=== PATIENT | female | born 1995 | race Caucasian/White ===

== ENCOUNTER 2016-04-20 17:48 | Emergency (ER) | payer BC ==
[~2016-04-20] VITALS: Ht 162.6 cm; Wt 61.5 kg
[2016-04-20 17:55] VITALS: BP 106/72; TEMP 36.8; Ht 162.6 cm; Wt 61.5 kg
[2016-04-20 18:32] VITALS: PULSE 74; O2SAT 98
--- NOTE | 2016-04-20 18:48 | EMERGENCY ROOM VISIT NOTE ---
ED Visit Note First contact with patient: 17:56 Chief Complaint: Sore throat. History of Present Illness: Ms. Beltran is a 20-year-old white female who ambulates into the ED accompanied by a male friend complaining of throat pain. Patient reports her discomfort started earlier today and is currently only with swallowing. She describes her pain as an achy sensation. She rates her discomfort 4/10. Her pain is nonradiating. As mentioned earlier her pain is only with swallowing and without swallowing she is pain-free. She has not taken any medications for her pain prior to arrival at the hospital. Associated with her pain she does report she looked in her throat in the mirror and noted white spots on her right tonsil plan she has had a mild nonproductive cough. She denies fevers, chills, sweats, skin eruptions, skin color changes, headache, dizziness, lightheadedness, nasal drainage, voice changes, painful talking, drooling, neck pain/stiffness, shortness of breath, wheezing, abdominal pain, nausea/vomiting, decreased appetite. Review of Systems: As noted above in history of present illness. 8 body systems were reviewed and found to be negative as noted above. Past Medical History: Unspecified nose and foot surgeries. Current Medications: Patient denies. Allergies to Medications: Patient denies. Social History: Patient is [employer] student; she feels safe in her home environment; she denies tobacco and alcohol use. Physical Examination: Vital Signs: Date Time Temp Pulse Resp B/P Pulse Ox O2 Delivery O2 Flow Rate FiO2 04/20/16 18:32 74 18 98 Room Air 04/20/16 17:55 36.8 85 16 106/72 98 Room Air GENERAL: 20-year-old female in no acute distress, nontoxic-appearing, afebrile and hemodynamically stable. NEUROLOGICAL: Awake, alert and oriented to person, place and time. Answering questions appropriately and following commands. Normal gait. Good hand eye coordination. No focal motor sensory deficits. SKIN: Warm, dry and pink. No soft tissue eruptions noted. HEENT: Atraumatic and normocephalic. Sclera white and conjunctiva pink without drainage. No drainage from naris without drainage. Oral cavity moist and pink. No intraoral trauma. Uvula is midline and no abscesses are seen. Pharynx is mildly erythematous but not edematous. Mild tonsillar hypertrophy. White exudative material was noted on the top of the right tonsil. Speech normal. No lymphadenopathy. Trachea midline. No jugular venous distention. No laryngeal tenderness. BACK: No tenderness over the bony spine. Full range of motion of the cervical spine. THORAX: Lungs sounds are clear to auscultation and equal bilaterally with symmetrical chest wall. No wheezing, rales or rhonchi. ED Course: Patient is assessed as noted above. Rapid Strep Screen: Negative. Culture pending. Patient was educated about tonight's findings and instructed on her treatment plan; she verbalized understanding and agreement with this plan. Clinical Impression: Acute pharyngitis. Disposition: Patient discharged home in stable fashion accompanied by male friend; prior to departure she was reassessed and subjectively reported that she was pain-free. Plan: Patient was encouraged to alternate ibuprofen and acetaminophen as needed for pain. Patient was encouraged use and instructed on use of salt water gargles. Patient was encouraged to use a liquid/mechanical soft diet and to stay well- hydrated. Patient was encouraged to follow-up at [facility] for recheck in 3-5 days if no better. Patient was encouraged return the ED for worsening/uncontrolled pain, drooling, painful talking, uncontrolled fevers, inability to swallow, neck pain/stiffness or any new/concerning symptoms.
== END 2016-04-20 18:32 | disposition home or self-care (01) ==
LOC: C.EDB 17:49 → C.EDD 18:32
DX: J02.9 Acute pharyngitis, unspecified (principal)